=== PATIENT | female | born 1985 ===

== ENCOUNTER → 2018-11-12 22:24 | Outpatient (ROUT) | payer BC, SELFPAY ==
[2018-11-13 01:22] LABS: Rubella Antibody IgG 56.9 IU/mL (>15)
[2018-11-15 15:09] LABS: RPR Screen Nonreactive (Nonreactive)
== END ==
PROVIDERS: Visit Provider Family Medicine
DX: Z11.1 Encounter for screening for respiratory tuberculosis (principal); Z11.3 Encounter for screening for infections with a predominantly sexual mode of transmission
CPT/HCPCS: 36415; 86480; 86592; 86735; 86762; 86765; 86787; 87591